=== PATIENT | female | born 1935 | race Caucasian/White ===

== ENCOUNTER 2017-01-10 07:30 | Outpatient (CLI) | payer MEDICARE, BC ==
[~2017-01-10] VITALS: Ht 154.9 cm; Wt 47.7 kg
--- NOTE | ~2017-01-10 | HEMODYNAMI ---
PATIENT:CAMILA MACKEY MEDICAL RECORD: [id number] : 35 LOCATION:[facility] ADMISSION DATE: 01/10/17 Generatedon:01/10/201710:29 Patient name: CAMILA MACKEY Patient #: [id number] SSN: D OB: 1935 Date of study: 01/10/2017 Page: Of Hemodynamic Procedure Report Patient Data Patient Demographics Procedure consent was obtained First Name: CAMILA Gender: Female Last Name: NARENDRA : 1935 [facility] Initial: T Age: 81 year(s) Patient #: [id number] Race: Additional ID: [id number] Contact details Address: [address] [place] [address] State: [place] City: [place] Zip code: [address] Past Medical History Allergies: No known allergies Admission Admission Data Admission Date: 01/10/2017 Admission Time: 7:30 Procedure Procedure Types Cath Procedure Diagnostic Procedure LHC LHC w/Coronaries PCI Procedure Coronary Stent Initial PTCA Additional Miscellaneous Procedures Moderate Sedation up to 30 minutes Procedure Description Procedure Date Procedure Date: 01/10/2017 Procedure Start Time: 10:03 Procedure End Time: 10:25 Procedure Staff Name Function Ayush Montano MD Performing Physician Norberto Gibson RT Scrub Marva Estrada RN Nurse Aamir Amado RT Monitor Procedure Data Cath Procedure Fluoroscopy Diagnostic fluoroscopy Total fluoroscopy Time: 4.9 time: 4.9 min min Diagnostic fluoroscopy Total fluoroscopy dose: 396 dose: 396 mGy mGy Contrast Material Contrast Material Type Amount (ml) Isovue 300 99 Entry Location Entry Primary Successful Side Size Upsize Upsize Entry Closure Succes sful Closure Location (Fr) 1 (Fr) 2 (Fr) Remarks Device Remarks Radial Right 6 Fr UNABLE BANDAID artery Short TO GET ENTRY Femoral Right 5 Fr 7 Fr Exoseal artery Short Diagnostic catheters Device Type Used For End Catheter Placement Cordis 5Fr Pigtail LV Angiography Catheter (MP) Cordis 5Fr JL 4.0 Left Coronary Catheter (MP) Angiography Cordis 5Fr 3DRC Catheter Right Coronary (MP) Angiography Procedure Complications No complications Procedure Medications Medication Administration Route Dosage Oxygen 2 l/min Lidocaine 2% added to field 20 Heparin Flush Bag added to field 2 bags (1000units/500ml NS) Radial Cocktail added to field 1 syringe (Verapomil 2mg/Nitro 400mcg/Heparin 1500units) 0.9% NaCl I.V. 150 ml/hr Versed I.V. 1 mg Fentanyl I.V. 50 mcg Versed I.V. 1 mg Fentanyl I.V. 50 mcg Fentanyl I.V. 50 mcg Heparin Bolus I.V. 4000 units Hemodynamics Rest Heart Rate: 74 (bpm) Snapshots Pre Cath Intra NCS Post Cath Vital Signs Time Heart Resp SPO2 NIBP (mmHg) Rhythm Pain Sedation Rate (ipm) (%) Status Level (bpm) 9:16:22 72 19 98 201/97(157) NSR 0 (11) 10(A) , No pain 9:20:44 71 16 100 196/99(156) NSR 0 (11) 10(A) , No pain 9:25:06 72 22 100 194/95(152) NSR 0 (11) 10(A) , No pain 9:29:29 69 21 100 180/88(145) NSR 0 (11) 10(A) , No pain 9:33:51 65 21 100 151/76(120) NSR 0 (11) 10(A) , No pain 9:38:03 64 21 97 140/74(115) NSR 0 (11) 10(A) , No pain 9:42:10 64 19 98 150/72(121) NSR 0 (11) 10(A) , No pain 9:46:22 63 19 95 145/72(113) NSR 0 (11) 10(A) , No pain 9:50:34 62 19 97 141/69(111) NSR 0 (11) 10(A) , No pain 9:54:46 62 18 97 144/68(109) NSR 0 (11) 10(A) , No pain 9:58:58 63 19 95 141/70(113) NSR 0 (11) 10(A) , No pain 10:03:08 62 19 100 152/72(116) NSR 0 (11) 9(A) , No pain 10:08:20 68 19 100 175/90(139) NSR 0 (11) 9(A) , No pain 10:12:38 70 19 100 165/83(129) NSR 0 (11) 9(A) , No pain 10:16:58 71 16 100 139/69(113) NSR 0 (11) 9(A) , No pain 10:21:07 71 17 100 146/69(119) NSR 0 (11) 9(A) , No pain 10:24:28 73 20 99 161/83(132) NSR 0 (11) 9(A) , No pain Medications Time Medication Route Dose Verified Delivered Reason Note s Effectiveness by by 9:20:26 Oxygen 2 l/min Ayush Marva Per physician Charmaine Estrada RN 9:20:33 Lidocaine 2% added 20ml Ayush Ayush used for to vial Charmaine Montano MD procedure field 9:20:43 Heparin Flush added 2 bags Ayush Ayush used for Bag to Charmaine Montano MD procedure (1000units/500ml field NS) 9:20:51 Radial Cocktail added 1 Ayush Ayush used for (Verapomil to syringe Charmaine Montano MD procedure 2mg/Nitro field 400mcg/Heparin 1500units) 9:23:43 0.9% NaCl I.V. 150 Ayush Marva Per physician ml/hr Charmaine Estrada RN 9:53:03 Versed I.V. 1 mg Ayush Marva for Charmaine Estrada RN hypertension 9:53:09 Fentanyl I.V. 50 mcg Ayush Marva for sedation Charmaine Estrada RN 9:55:11 Versed I.V. 1 mg Ayush Marva for Charmaine Estrada RN hypertension 9:55:14 Fentanyl I.V. 50 mcg Ayush Marva for sedation Charmaine Estrada RN 9:59:41 Fentanyl I.V. 50 mcg Ayush Marva for sedation Charmaine Estrada RN 10:13:19 Heparin Bolus I.V. 4000 Ayush Marva for dose units Charmaine Estrada RN anticoagulation verified wtih dr montano Procedure Log Time Note 8:59:14 ACC Patient presents with Stable Angina CCS Anginal Class 2--Slight limitation of ordinary activity. 8:59:16 Diagnostic Cath status Elective 8:59:19 Norberto Gibson RT(R) sent for patient. Start room use. 8:59:21 Time tracking: Regular hours 8:59:25 Plan of Care:Hemodynamics will remain stable., Cardiac rhythm will remain stable., Comfort level will be maintained., Respiratory function will remain adequate., Patient/ family verbilizes understanding of procedure., Procedure tolerated without complication., Recovers from procedure without complications.. 9:10:36 Patient received from Pre/Post Procedure Room to CCL 2 Alert and oriented. Tansferred to table in Supine position. 9:10:38 Warm blankets applied, and baylee hugger turned on for patient comfort. 9:10:38 Correct patient and procedure confirmed by team. 9:10:39 Signed procedure consent form obtained from patient. 9:10:40 ECG and BP/O2 sat monitors applied to patient. 9:14:15 Vital chart was started 9:14:20 Rhythm: sinus rhythm 9:14:22 Full Disclosure recording started 9:14:47 H&P Date Dictated: 01/06/2017 Within 30 days and on chart., H&P Addendum completed by physician on day of procedure. (MUST COMPLETE FOR ALL OUTPATIENTS). 9:14:49 Pre-procedure instructions explained to patient. 9:14:49 Pre-op teaching completed and patient verbalized understanding. 9:14:50 Family in waiting room. 9:14:52 Patient NPO since Midnight. 9:14:53 Is the patient allergic to Iodine/contrast media? No. 9:14:55 Is patient on blood thinner?Yes 9:14:57 ACC The patient was administered the following blood thiners within the last 24 hours: ACCPlavix 9:14:58 Patient diabetic? No. 9:15:00 Patient not . Patient is over age 55. 9:15:02 Previous problem with sedation/anesthesia? No ? 9:15:04 Snore? Yes 9:15:05 Sleep apnea? No 9:15:06 Deviated septum? No 9:15:07 Opens mouth fully? Yes 9:15:08 Sticks out tongue? Yes 9:15:09 Airway obstruction? No ? 9:15:16 Dentures? No ? 9:15:19 Pre procedure: right dorsailis pedis pulse 1+ Palpable, but thready & weak; easily obliterated 9:15:21 Modified Osei's test Ulnar < 7 seconds 9:15:23 Patient pain scale 0/10 ?. 9:15:29 IV patent on arrival in left forearm with 0.9% NaCl at O. 9:15:31 Lab results completed and on chart. 9:15:35 Right Radial & Right Groin area was prepped with chlora-prep and draped in sterile fashion 9:15:36 Alarms reviewed by R. N. 9:15:37 Sharps counted by scrub and verified by R.N. 9:17:08 Baseline sample Acquired. 9:20:26 Oxygen 2 l/min was administered by Marva Estrada RN; Per physician; 9:20:33 Lidocaine 2% 20ml vial added to field was administered by Ayush Montano MD; used for procedure; 9:20:43 Heparin Flush Bag (1000units/500ml NS) 2 bags added to field was administered by Ayush Montano MD; used for procedure; 9:20:51 Radial Cocktail (Verapomil 2mg/Nitro 400mcg/Heparin 1500units) 1 syringe added to field was administered by Ayush Montano MD; used for procedure; 9:23:43 0.9% NaCl 150 ml/hr I.V. was administered by Marva Estrada RN; Per physician; 9:25:00 Use device set Radial Dx 9:25:01 Acist Syringe opened to sterile field. 9:25:02 Medline Cath Pack opened to sterile field. 9:25:02 Bag Decanter opened to sterile field. 9:25:02 Terumo 6Fr Slender Glidesheath opened to sterile field. 9:25:03 St Dinesh 260cm J .035 wire opened to sterile field. 9:25:03 Acist Hand Control opened to sterile field. 9:25:04 Acist Manifold opened to sterile field. 9:25:04 Tegaderm 4 x 4 opened to sterile field. 9:25:05 MBrace Wrist Support opened to sterile field. 9:36:47 Zero performed for pressure channel P1 9:46:50 Baseline sample Acquired. 9:52:31 --------ALL STOP TIME OUT------ 9:52:31 Final Timeout: patient, procedure, and site verified with staff and physician. All members of the team are in agreement. 9:52:33 Right Radial & Right Groin site verified by team. 9:52:38 Physical assessment completed. ASA score P 2 - A patient with mild systemic disease as per Ayush Montano MD. 9:52:41 Sedation plan: IV Moderate Sedation Versed, Fentanyl 9:53:03 Versed 1 mg I.V. was administered by Marva Estrada RN; for hypertension; 9:53:09 Fentanyl 50 mcg I.V. was administered by Marva Estrada RN; for sedation; 9:55:11 Versed 1 mg I.V. was administered by Marva Estrada RN; for hypertension; 9:55:14 Fentanyl 50 mcg I.V. was administered by Marva Estrada RN; for sedation; 9:59:41 Fentanyl 50 mcg I.V. was administered by Marva Estrada RN; for sedation; 10:03:24 Procedure started. 10:03:38 Local anesthetic to right radial artery with Lidocaine 2% by Ayush Montano MD.INITIAL ACCESS ONLY 10:03:49 A 6 Fr Short sheath was inserted into the Right Radial arteryUNABLE TO GET ENTRY 10:04:39 Terumo 5Fr [place] Sheath opened to sterile field. 10:04:42 Use device set Multipack Set 10:04:43 Diagnostic Infinity 5Fr Multipack catheter opened to sterile field. 10:04:47 Local anesthetic to right femoral artery with Lidocaine 2% by Ayush Montano MD.ADDITIONAL ACCESS 10:04:54 A 5 Fr sheath was inserted into the Right Femoral artery 10:07:13 A Cordis 5Fr Pigtail Catheter (MP) was advanced over the wire and used for LV Angiography. 10:07:16 LV angiography performed. 10:07:47 EF : 60 % 10:07:51 LV gram done using BREWER 10:07:55 Injector settings: Ml/sec: 10, Volume: 20, 10:07:56 Catheter removed. 10:08:00 A Cordis 5Fr JL 4.0 Catheter (MP) was advanced over the wire and used for Left Coronary Angiography. 10:10:21 LCA angiography performed. 10:10:22 Catheter removed. 10:10:28 A Cordis 5Fr 3DRC Catheter (MP) was advanced over the wire and used for Right Coronary Angiography. 10:10:31 RCA angiography performed. 10:11:01 Catheter removed. 10:13:08 Terumo 7Fr [place] Sheath opened to sterile field. 10:13:08 Medtronic Launcher 7Fr HS I guide catheter opened to sterile field. 10:13:08 Merit BasixCompak Inflation Kit opened to sterile field. 10:13:09 [place] Sci Choice PT Extra Support J 300cm .014 gu opened to sterile field. 10:13:19 Heparin Bolus 4000 units I.V. was administered by Marva Estrada RN; for anticoagulation; dose verified wtih dr montano 10:13:19 Sheath upsized to a 7 Fr Short. 10:13:29 ACC PCI Site: [place] has 99% stenosis. 10:13:31 ACC Pre-intervention TYLOR Flow is 3. 10:13:36 7 Fr HS 1 guide catheter was inserted over the wire 10:13:42 PDA CPTES wire advanced. 10:13:53 [place] Sci Choice PT Extra Support J 300cm .014 gu opened to sterile field. 10:14:19 PLV CPTES wire advanced. 10:16:25 BALLON OVER SECOND WIRE 10:16:46 Inflation number: 2 A Euphora 2.0 x 20 Balloon was prepped and advanced across the R PAV, then inflated to 21 CHERYLE for 0:10 (min:sec). 10:17:08 Inflation number: 1 The Euphora 2.0 x 20 Balloon was reinflated across the R PAV, to 23 CHERYLE for 0:14 (min:sec). 10:17:13 Balloon removed over the wire. 10:18:38 BALLON OVER THE FIRST WIRE 10:19:02 Inflation number: 1 The Euphora 2.0 x 20 Balloon was reinflated across the R PDA, to 17 CHERYLE for 0:18 (min:sec). 10:19:06 Balloon removed over the wire. 10:19:06 Wire removed. 10:20:08 Cordis 7Fr Exoseal opened to sterile field. 10:20:51 Inflation Number: 3 A Medtronic Resolute 2.5 X 8 stent was prepped and advanced across the R PAV. The stent was deployed at 19 CHERYLE for 0:17 (min:sec). 10:21:05 Inflation number: 4 The stent balloon was then re-inflated across the R PAV to 23 CHERYLE for 0:10 (min:sec). 10::41 Stent catheter was removed intact over wire. 10:: Wire removed. 10::42 Guide catheter removed. 10::47 Contrast amount:Isovue 300 99ml. 10:21:54 Sheath removed intact; hemostasis achieved with Exoseal to the Right Femoral artery. 10:22:09 Procedure ended.(Physican Out) 10:: Fluoroscopy time 04.90 minutes. 10::24 Flurop Dose total: 396 10::24 Fluoroscopy dose: 396 mGy 10::25 Sharps counted by scrub and verified by R.N. 10:22:26 Insertion/operative site no bleeding no hematoma. 10:22:28 Post-op/insertion site Right Femoral artery dressed using a 4 x 4 and Tegaderm. 10:22:31 Post right femoral artery:stable 10:24:23 Procedure type changed to Cath procedure, Diagnostic procedure, LHC, LHC w/Coronaries, PCI procedure, Coronary Stent Initial, PTCA Additional, Miscellaneous Procedures, Moderate Sedation up to 30 minutes 10:24:55 Post Procedure Pulses reassessed and unchanged 10:24:58 Post procedure rhythm: sinus rhythm 10:24:59 Post procedure instruction explained to patient.Patient verbalizes understanding. 10:25:00 Procedure and supply charges have been captured, reviewed, submitted and are correct. 10:25:04 Procedure Complication : No complications 10:25:06 Vital chart was stopped 10:25:06 See physician's report for complete and final results. 10:25:10 Report given to Pre/Post Procedure Room. 10:25:13 Patient transfered to Pre/Post Procedure Room with Stretcher. 10:25:14 Procedure ended. 10:25:14 Full Disclosure recording stopped 10:25:19 End room use (Document Last) Intervention Summary Intervention Notes Time ActionType Lesion and Equipment Action# Pressure Duration Attributes Used 10:16:46 Inflate R PAV Euphora 2 21 00:10 balloon 2.0 x 20 Balloon 10:17:08 Reinflate R PAV Euphora 1 23 00:14 balloon 2.0 x 20 Balloon 10:19:02 Reinflate R PDA Euphora 1 17 00:18 balloon 2.0 x 20 Balloon 10:20:51 Place stent R PAV Medtronic 3 19 00:17 Resolute 2.5 X 8 stent 10:21:05 Reinflate R PAV Medtronic 4 23 00:10 stent Resolute balloon 2.5 X 8 stent Device Usage Item Name Manufacture Quantity Catalog Number Hospital Part Current Minim al Lot# / Charge Number Stock Stock Serial# Code Acist Acist 1 [id number] [id number] [id number] [id number] 20 Syringe Medical Systems Inc Medline Cardinal 1 [id number] 404455 41108 825894 5 Cath Pack Health Bag Microtek 1 2002S 910645 34875 325737 5 [employer]. Terumo 6Fr Terumo 1 [id number] 246372 222775 803606 [address] D[address] St Dinesh 1 484697 343426 847483 889898 30 260cm J .035 wire Acist Hand Acist 1 56109 496131 175125 162305 5 [employer] Medical Systems Inc Acist Acist 1 49776 109413 816517 854898 5 Manifold Medical Systems Inc Tegaderm 4 3M 1 [id number] 078048 787683 233593 5 x 4 MBrace Advanced 1 140-0250-00 433245 24517 495811 5 Wrist Vascular Support Dynamics Terumo 5Fr Terumo 1 [id number] 404854 741434 439357 40 [place] Sheath Diagnostic Cardinal 1 [id number] 879892 01909 793695 30 Infinity Health 5Fr Multipack catheter Cordis 5Fr Cardinal 1 106189 5 Pigtail Health Catheter (MP) Cordis 5Fr Cardinal 1 428888 5 JL 4.0 Health Catheter (MP) Cordis 5Fr Cardinal 1 566250 5 3DRC Health Catheter (MP) Terumo 7Fr Terumo 1 [id number] 268622 162695 429879 5 [place] Sheath Medtronic Medtronic 1 [id number] 295827 722337 203522 0 Launcher 7Fr HS I guide catheter Merit Merit 1 [id number] 227227 843540 118998 15 [employer]TheRooms Medical Inflation Kit [place]ank Sci Burbank 2 [id number] 746167 330451 556751 5 Choice PT Scientific Extra Support J 300cm .014 gu Euphora 2.0 Medtronic 1 [id number] 275144 564507 074941 5 [id number] x 20 Balloon Cordis 7Fr Cardinal 1 [id number] 271587 928949 302052 5 [facility] Medtronic Medtronic 1 [id number] 470045 731007 4 [id number] Resolute 2.5 X 8 stent Signature Audit [place] Stage Time Signature Unsigned Intra-Procedure 01/10/2017 Norberto Gibson 10:29:32 AM RT(R) Signatures Monitor : Aamir Amado RT Signature : Date : Time : [address] [address]
[~2017-01-10 07:30] MED LIST: ASPIRIN81 MG PO; BETAPACE 80 MG80 MG PO; LIPITOR40 MG PO; LISINOPRIL-HCTZ1 T13 PO; LISINOPRIL2.5 MG PO; MULTI-DAY VITAM1 TAB PO; PLAVIX75 MG PO; PRAVACHOL80 MG PO; RANEXA500 MG PO; VITAMIN B COMPL1 TAB PO
[2017-01-10 08:04] VITALS: BP 182/83; Ht 154.9 cm; Wt 47.7 kg
[2017-01-10 08:32] LABS: BASOPHILS 0.7 % (0.0-2.0); EOSINOPHILS 2.4 % (0-7); HEMATOCRIT 34.9 % (36.0-48.0); HEMOGLOBIN 11.6 g/dL (12-16); IMMATURE GRANULOCYTES 0.2 % (0-5); LYMPHOCYTES 11.8 % (15-50); MCH 31.1 pg (26.0-34.0); MCHC 33.2 g/dL (31.0-37.0); MCV 93.6 fL (80.0-100.0); MEAN PLATELET VOLUME 9.9 fL (7.4-10.4); MONOCYTES 14.9 % (2-11); PLATELET COUNT 236 10x3/uL (130-400); RBC 3.73 10x6/uL (4.00-5.40); RDW 14.2 % (11.5-14.5); WBC 4.2 10x3/uL (4.8-10.8)
[2017-01-10 08:48] LABS: CALC OSMOLALITY 273 mosm/kg (275-300); CALCIUM 9.1 mg/dL (8.5-10.1); CARBON DIOXIDE 26.4 mmol/L (21.0-32.0); CHLORIDE - SERUM 101 mmol/L (98-107); CREATINE KINASE 52 UL (21-215); CREATININE - SERUM 0.7 mg/dL (0.6-1.3); GLUCOSE 93 mg/dL (74-106); POTASSIUM - SERUM 3.8 mmol/L (3.5-5.1); SODIUM 136 mmol/L (136-145); UREA NITROGEN 19 mg/dL (7-18); eGFR NON AFRICAN AMERICAN 85 mL/min (90-120)
[2017-01-10 09:33] LABS: CKMB 4.8 U/L (0.0-3.6)
[2017-01-10 09:35] LABS: TROPONIN-I < 0.017 ng/mL (0.000-0.060)
--- NOTE | 2017-01-10 11:05 | NUR ---
1100-RIGHT GROIN CDI, NO HEMATOMA OR BLEEDING NOTED, SOFT TO TOUCH
--- NOTE | 2017-01-10 14:45 | NUR ---
1415-IV D'C WITH CATH TIP INTACT, WRITTEN AND VERBAL INSTRUCTIONS GIVEN TO PT AND , DENIES FURTHUR NEEDS
--- NOTE | 2017-01-15 08:06 | OP ---
PATIENT NAME: CAMILA MACKEY MEDICAL RECORD: [id number] :35 LOCATION:D.CAT ADMISSION DATE: SURGEON: DONNIE RUBI MD DATE OF OPERATION: 01/10/2017 PROCEDURES: 1. PTCA stent to RCA PLV. 2. PTCA RCA PDA. 3. Left heart catheterization. 4. Selective coronary angiography. 5. Left ventriculogram. INDICATION: Unstable angina. PROCEDURE IN DETAIL: After informed consent was obtained and after detailed explanation of risks, benefits as well as alternative therapies, the patient elected to proceed with angiogram and angioplasty. The right femoral area was prepped and draped in normal sterile fashion. The right femoral artery was cannulated via modified Seldinger technique with placement of a 7-Georgian sheath. All catheters exchanged through this sheath. FINDINGS: Left ventriculogram was performed in standard 30-degree BREWER view, reveals good cardiac wall motion throughout all segments. Overall ejection fraction is 60%. SELECTIVE CORONARY ANGIOGRAPHY: 1. Left main showed no significant angiographic disease. 2. Left anterior descending has previously placed stents in the LAD and LAD diagonal. These are widely patent with no significant restenosis. 3. Left circumflex has previously placed stents, these are widely patent with no significant restenosis. No disease elsewhere throughout the left circumflex or its branches. 4. The right coronary has previously placed stents. Just after the previously placed stents in the PLV, there is 100% occlusion. The PDA as well has 99% occlusion. PTCA STENT OF THE PLV AND PTCA OF THE PDA. We used a 2.0 balloon throughout the PLV and PDA stent of the PLV with a 2.5 x 8 mm Resolute stent. Result was 0% residual with gnosticism of TYLOR-3 flow. IMPRESSION: Successful percutaneous transluminal coronary angioplasty stent of the right PLV going from 100% initial stenosis to 0% residual. TRANSINT:[id number] Voice Confirmation ID: [id number] DOCUMENT ID: [id number] DONNIE RUBI MD at 0806 CC: [id number] DICTATION DATE: 01/10/17 1028 CAR SHIFTER: 01/10/17 1405 DEP CLI 01/10/17 [place] [address]
== END 2017-01-10 14:30 | disposition home or self-care (01) ==
LOC: D.CATH 07:30
PROVIDERS: Internal Medicine Interventional Cardiology
DX: I25.110 Atherosclerotic heart disease of native coronary artery with unstable angina pectoris (principal); Z95.5 Presence of coronary angioplasty implant and graft; I48.91 Unspecified atrial fibrillation
CPT/HCPCS: 93458; 92921; C9600